=== PATIENT | male | born 2000 | race Caucasian/White ===

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

== ENCOUNTER 2019-05-11 20:23 | Observation (INO) ==
[2019-05-11 21:14] LABS: Bilirubin,Urine Negative (Negative); Blood,Urine Negative (Negative); Clarity,Urine Clear (Clear); Color,Urine Yellow (Yellow); Glucose,Urine (UA) Normal (Normal); Ketones,Urine Negative (Negative); Leukocyte Esterase,Urine Small (Negative); Nitrite,Urine Negative (Negative); PH,Urine 7.5 pH Units (5.0-8.0); Protein,Urine Trace mg/dL (Neg-Trace); Specific Gravity,Urine 1.029 (1.010-1.025); Urobilinogen,Urine Normal (Normal)
[2019-05-11] MEDS ORDERED: Tdap (Boostrix) Vaccine 0.5 ML SYRINGE IM ONE (21:17)
[2019-05-11 21:18] LABS: Bacteria,Urine None Seen per hpf (None-Few); Hyaline Casts,Urine None Seen per lpf (None-Few); RBC,Urine 0-3 per hpf (0-3); Squamous Epithelial Cell,Urine Many per lpf (None-Few)
[2019-05-11 21:25] LABS: Amphetamine Screen,Urine Positive ng/mL (Cutoff=1000); Barbiturate Screen,Urine Negative ng/mL (Cutoff=200); Benzodiazepines Screen,Urine Negative ng/mL (Cutoff=200); Cannabinoid Screen,Urine Negative ng/mL (Cutoff = 50); Cocaine Screen,Urine Negative ng/mL (Cutoff= 300); Opiate Screen,Urine Negative ng/mL (Cutoff=300); Phencyclidine Screen,Urine Negative ng/mL (Cutoff=25)
[2019-05-11 21:29] LABS: Hemoglobin 13.4 g/dL (12.9-16.9); Red Blood Count 4.23 M/mcL (4.19-5.50)
[2019-05-11 21:30] LABS: Basophils % 0.5 %; Eosinophils # 0.2 K/mcL (0.0-0.6); Eosinophils % 3.3 %; Hematocrit 40.1 % (37.5-50.1); Immature Granulocytes % 0.5 % (0-4); Lymphocytes # 2.5 K/mcL (0.6-4.6); Mean Corpuscular HGB Conc 33.4 g/dL (31.6-35.5); Mean Corpuscular Hemoglobin 31.7 pg (28.0-33.3); Mean Corpuscular Volume 94.8 fL (83.0-100.0); Mean Platelet Volume 9.9 fL (9.4-12.4); Monocytes # 0.7 K/mcL (0.0-1.3); Monocytes % 11.1 %; Neutrophils # 2.6 K/mcL (1.6-8.9); Platelet Count 279 K/mcL (140-400); Segmented Neutrophils % 43.6 %
[2019-05-11 21:49] LABS: Acetaminophen < 10 mcg/mL (10-20); BUN/Creatinine Ratio 18 (6-26); Blood Urea Nitrogen 13 mg/dL (6-20); Calcium 9.6 mg/dL (8.6-10.3); Carbon Dioxide 25 mEq/L (23-29); Chloride 104 mEq/L (98-107); Ethanol < 10 mg/dL (Less than 10); Glucose 84 mg/dL (70-105); Osmolality,Calculated 283 (280-300); Potassium 3.5 mEq/L (3.5-5.1); Salicylate < 2.5 mg/dL (15.0-30.0); Sodium 137 mEq/L (136-145); eGFR For African Americans > 60; eGFR For Non-African Americans > 60
[2019-05-11] MEDS ORDERED: Haloperidol Lactate 5 MG/ML VIAL IM PRN (23:43)
[2019-05-11] MEDS ORDERED: MOM Conc 10 ML UD.LIQ PO PRN (23:43)
[2019-05-11] MEDS ORDERED: Acetaminophen 325 MG TABLET PO PRN (23:43)
[2019-05-11] MEDS ORDERED: Mag Hydrox/Al Hydrox/Simeth 30 ML UDC PO PRN (23:43)
[2019-05-11] MEDS ORDERED: haloperidoL 5 MG TABLET PO PRN (23:43)
[2019-05-11] MEDS ORDERED: QUEtiapine Fumarate 25 MG TABLET PO PRN (23:43)
[2019-05-11] MEDS ORDERED: *HR* LORazepam 2 MG/ML VIAL IM PRN (23:43)
[2019-05-11] MEDS ORDERED: hydrOXYzine pamoate 25 MG CAPSULE PO PRN (23:43)
[2019-05-11] MEDS ORDERED: *HR* LORazepam 1 MG TABLET PO PRN (23:43)
[2019-05-12] MEDS: Propranolol LA (24 HR) 60 MG CAP.SA.24H PO SCH (11:38)
[2019-05-12] MEDS ORDERED: Divalproex (12 HR) 500 MG TABLET PO SCH (21:00)
[2019-05-12] MEDS ORDERED: QUEtiapine Fumarate 100 MG TABLET PO SCH (21:00)
[2019-05-13] MEDS: Propranolol LA (24 HR) 60 MG CAP.SA.24H PO SCH (08:47)
[2019-05-13 09:24] VITALS: BP 119/70
== END 2019-05-13 13:15 | disposition home or self-care (01) ==
LOC: EMEROOARM 20:23 → INTOOBSV 23:34 → 1ANU 23:34
PROVIDERS: ADMIT Psychiatry & Neurology Psychiatry; ATTEND Psychiatry & Neurology Psychiatry